=== PATIENT | female | born 1950 | race Caucasian/White ===

== ENCOUNTER 2017-07-16 10:20 | Emergency (ER) | payer OTHER, MEDICARE ==
[2017-07-16 10:26] VITALS: BP 129/82; PULSE 63; TEMP 98.6; BMI 30.2
[2017-07-16 10:35] LABS: URINE APPEARANCE Clear; URINE BILIRUBIN Negative (NEGATIVE); URINE BLOOD Trace-lysed (NEGATIVE); URINE COLOR AMBER; URINE GLUCOSE (UA) Negative (NEGATIVE); URINE KETONE Negative (NEGATIVE); URINE LEUK ESTERASE Negative (NEGATIVE); URINE NITRITE Negative (NEGATIVE); URINE PROTEIN Negative (NEGATIVE); URINE UROBILINOGEN 0.2 (0.2-1.0)
[2017-07-16 10:53] LABS: URINE RBC 0-3 /hpf (0-3)
--- NOTE | 2017-07-16 10:53 | PDOC ---
History of Present Illness - General Chief Complaint: Pain, Acute Stated Complaint: RT FLANK PAIN Time Seen by Provider: 07/16/17 10:53 - History of Present Illness Initial Comments: 07/16/17 11:36 66-year-old female with a history of COPD, hypertension, hyperlipidemia and gallstones presents to the emergency Department with sudden onset right flank pain since 5 AM this morning. Patient states the pain comes and goes and at times radiates down to the groin. 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 Denies associated nausea or vomiting. Denies urinary frequency, dysuria, hesitancy. Denies hematuria. Denies fevers or chills. Patient has never had similar pain in the past. Denies any chest pain, shortness of breath, constipation or diarrhea. Denies lower extremity edema, weakness or numbness. Has not tried any treatments and declines pain medication at this time. Past History - Past Medical History Allergies/Adverse Reactions: Allergies Allergy/AdvReac Type Severity Reaction Status Date / Time ofloxacin [From Floxin] Allergy Intermediate Verified 04/13/15 14:09 pitavastatin calcium Allergy Intermediate Rash Verified 07/16/17 10:22 [From Livalo] Ofloxacin Allergy Intermediate Uncoded 07/16/17 10:22 losartanhctz AdvReac Intermediate [place] like Uncoded 07/16/17 10:22 she was going to faint Home Medications: Ambulatory Orders [place]-3/Dha/Epa/Fish Oil [Fish Oil 1,000 mg Softgel] 1 each PO DAILY 05/19/11 Rosuvastatin [Crestor -] 10 mg PO HS 05/19/11 Cyclosporine [Restasis] 1 each OP BID 04/15/12 Cholecalciferol (Vitamin D3) [Vitamin D3] 5,000 unit PO DAILY capsule 04/11/14 Hydrochlorothiazide 12.5 mg PO DAILY tablet 07/27/15 Duloxetine HCl [Cymbalta] 30 mg PO DAILY 07/16/17 Lutein Extract/Zeaxanthin Ext [Lutein 15 mg Softgel] 1 each PO DAILY 07/16/17 Ubidecarenone [Coq-10] 100 mg PO DAILY 07/16/17 Anemia: No Asthma: No Cancer: No Cardiac Disorders: Yes (PALPITATIONS) CVA: No COPD: Yes CHF: No Dementia: No Diabetes: No GI Disorders: Yes (ACID REFLUX, GALLSTONES) Disorders: No HTN: Yes Hypercholesterolemia: Yes Liver Disease: No Seizures: No Thyroid Disease: No Other medical history: FIBROMYALGIA - Surgical History Abdominal Surgery: No Appendectomy: Yes Cardiac Surgery: No Cholecystectomy: No Lung Surgery: No Neurologic Surgery: No Orthopedic Surgery: No - Immunization History Immunization Up to Date: Yes - Suicide/Smoking/Psychosocial Hx Smoking Status: No Smoking History: Never smoked Have you smoked in the past 12 months: No Number of Cigarettes Smoked Daily: 0 Cigars Per Day: 0 Hx Alcohol Use: No Drug/Substance Use Hx: No Substance Use Type: None Hx Substance Use Treatment: No Review of Systems - Review of Systems Comments:: 07/16/17 11:38 GENERAL/CONSTITUTIONAL: No fever or chills. No weakness. HEAD, EYES, EARS, NOSE AND THROAT: No change in vision. No ear pain or discharge. No sore throat. GASTROINTESTINAL: No nausea, vomiting, diarrhea or constipation. +R flank pain GENITOURINARY: No dysuria, frequency, or change in urination. CARDIOVASCULAR: No chest pain or shortness of breath. RESPIRATORY: No cough, wheezing, or hemoptysis. MUSCULOSKELETAL: No joint or muscle swelling or pain. No neck or back pain. SKIN: No rash NEUROLOGIC: No headache, vertigo, loss of consciousness, or change in strength/ sensation. ENDOCRINE: No increased thirst. No abnormal weight change. HEMATOLOGIC/LYMPHATIC: No anemia, easy bleeding, or history of blood clots. ALLERGIC/IMMUNOLOGIC: No hives or skin allergy. *Physical Exam - Vital Signs Last Vital Signs Temp Pulse Resp BP Pulse Ox 98.6 F 63 18 129/82 98 07/16/17 10:20 07/16/17 10:20 07/16/17 10:20 07/16/17 10:20 07/16/17 10:20 - Physical Exam Comments: 07/16/17 11:39 GENERAL: Awake, alert, and fully oriented, in no acute distress HEAD: No signs of trauma EYES: PERRLA, EOMI, sclera anicteric, conjunctiva clear ENT: Auricles normal inspection, hearing grossly normal, nares patent, oropharynx clear without exudates. Moist mucosa NECK: Normal ROM, supple, no lymphadenopathy, JVD, or masses LUNGS: Breath sounds equal, clear to auscultation bilaterally. No wheezes, and no crackles HEART: Regular rate and rhythm, normal S1 and S2, no murmurs, rubs or gallops ABDOMEN: Soft, nontender, normoactive bowel sounds. No guarding, no rebound. No masses BACK: R lateral paraspinal thoracic ttp over muscles EXTREMITIES: Normal range of motion, no edema. No clubbing or cyanosis. No cords, erythema, or tenderness NEUROLOGICAL: Normal speech, cranial nerves intact, negative pronator drift, 5/ 5 strength in all 4 extremities, normal sensation to light touch in all 4 extremities, normal cerebellar exam, normal gait, normal reflexes and tone SKIN: Warm, Dry, normal turgor, no rashes or lesions noted. ED Treatment Course - LABORATORY CBC & Chemistry Diagram: 07/16/17 11:45 07/16/17 11:45 - ADDITIONAL ORDERS Additional order review: Laboratory Results 07/16/17 10:27 Urine Color Yoselyn Urine Appearance Clear Urine pH 6.0 Ur Specific [place] <= 1.005 Urine Protein Negative Urine Glucose (UA) Negative Urine Ketones Negative Urine Blood Trace-lysed H Urine Nitrite Negative Urine Bilirubin Negative Urine Urobilinogen 0.2 Ur Leukocyte Esterase Negative Medical Decision Making - Medical Decision Making 07/16/17 11:40 66-year-old female presents emergency Department with sudden onset intermittent right-sided flank pain radiating down to the right groin. Vitals unremarkable. Exam with only R lateral paraspinal thoracic ttp. Differential includes but is not limited to renal colic versus cholecystitis versus colitis versus musculoskeletal pain. Plan: -labs -UA -CTAP w/o con -declines pain meds -reassess 07/16/17 13:53 labs, CTAP unremarkable. No renal colic. Gallbaldder with stones but no perichole fluid, edema. Pt also not tender in RUQ. Continues to be tender over R lateral thoracic paraspinal muscles. Likely MSK pain. WIll trial toradol and reassess 07/16/17 14:36 Pt feels better, requests DC home. Advised to f/u with PMD within 1-2 days. I discussed the physical exam findings, ancillary test results and final diagnoses with the patient. I answered all of the patient's questions. The patient was satisfied with the care received and felt comfortable with the discharge plan and treatment plan. The patient will call their primary care physician within 24 hours to arrange follow-up and will return to the Emergency Department with any new, persistent or worsening symptoms. *DC/Admit/Observation/Transfer Diagnosis at time of Disposition: Flank pain - Discharge Dispostion Disposition: HOME Condition at time of disposition: Stable Decision to Admit order: No - Referrals Referrals: Ludwig Bolanos MD [Primary Care Provider] - - Patient Instructions Printed Discharge Instructions: DI for Flank Pain Additional Instructions: Follow up with your primary doctor in 1-2 days. Take ibuprofen as needed for pain and the muscle relaxer for breakthrough pain. The muscle relaxer (flexeril ) can make you dizzy so please do not drive or operate machinery while taking this medication. Return to the emergency department if you have any new, worsening, or concerning symptoms. - Post Discharge Activity - Attestations Physician Attestion: 07/16/17 14:39 I, Dr. Zach Farias MD, attest that this document has been prepared under my direction and personally reviewed by me in its entirety. I further attest, that it accurately reflects all work, treatment, procedures and medical decision -making performed by me.
[2017-07-16] MEDS ORDERED: SODIUM CHLORIDE 0.9% 500 ML INFUS.BAG IV ONE (11:34)
[2017-07-16 11:56] LABS: BASO % 1.1 % (0-2.0); EOS % 2.5 % (0-4.5); HEMATOCRIT 36.7 % (32.4-45.2); HEMOGLOBIN 12.7 GM/dl (10.7-15.3); LYMPH % 20.5 % (8-40); MCH 31.2 pg (25.7-33.7); MCHC 34.6 g/dl (32.0-36.0); MEAN CELL VOLUME 90.1 fl (80-96); MEAN PLT VOLUME 7.8 fl (7.5-11.1); MONO % 11.1 % (3.8-10.2); NEUT % 64.8 % (42.8-82.8); PLATELET COUNT 251 K/MM3 (134-434); RBC 4.07 M/mm3 (3.60-5.2); RDW 12.3 % (11.6-15.6); WHITE BLOOD COUNT 6.5 K/mm3 (4.0-10.8)
[2017-07-16 12:18] LABS: ALBUMIN 4.2 g/dl (3.5-5.0); ALK PHOS 40 U/L (32-92); ANION GAP 8 (8-16); BILIRUBIN,TOTAL 0.7 mg/dl (0.2-1.0); BLOOD UREA NITROGEN 23 mg/dl (7-18); CALCIUM 9.1 mg/dl (8.4-10.2); CHLORIDE 99 mmol/L (98-107); CO2 24 mmol/L (22-28); CREATININE 1.2 mg/dl (0.6-1.3); GLUCOSE,RANDOM 84 mg/dl (74-106); POTASSIUM 3.8 mmol/L (3.5-5.1); SGOT/AST 15 U/L (10-42); SGPT/ALT 10 U/L (10-40); SODIUM 131 mmol/L (136-145); TOT PROT 6.9 g/dl (6.4-8.3)
[2017-07-16 12:24] LABS: CHOLESTEROL 166 mg/dl; HDL CHOLESTEROL 50 mg/dl (29-89); LDL CHOLESTEROL (ONLY DFH) 87 mg/dl; TRIGLYCERIDES 145 mg/dl (35-160)
[2017-07-16] MEDS ORDERED: KETOROLAC TROMETHAMINE 15 MG/ML VIAL IVPUSH ONE (13:53)
[2017-07-16] MEDS ORDERED: KETOROLAC TROMETHAMINE 15 MG/ML VIAL ONE (13:54)
[2017-07-16 14:04] LABS: LIPASE 362 U/L (73-393)
== END 2017-07-16 14:45 | disposition home or self-care (01) ==
LOC: FER 10:20
PROC: 3E0333Z Introduction of Anti-inflammatory into Peripheral Vein, Percutaneous Approach (ICD-10-PCS; principal; 2017-07-16)
PROC: 3E0337Z Introduction of Electrolytic and Water Balance Substance into Peripheral Vein, Percutaneous Approach (ICD-10-PCS; 2017-07-16)
DX: R10.31 Right lower quadrant pain (principal); I10 Essential (primary) hypertension; E78.5 Hyperlipidemia, unspecified; J44.9 Chronic obstructive pulmonary disease, unspecified
CPT/HCPCS: 36415; 74176-TC; 80053; 80061; 81003; 81015; 83690; 85025; 87086; 99284-25

== ENCOUNTER 2023-11-30 13:03 | Emergency (ER) | payer OTHER, MEDICARE ==
[2023-11-30 13:12] VITALS: BP 127/76; PULSE 70; RESP 18; TEMP 98; BMI 31.5
[2023-11-30] MEDS ORDERED: ACETAMINOPHEN 325 MG TABLET (FP) ONE (14:58)
[2023-11-30] MEDS: ACETAMINOPHEN 325 MG TABLET (FP) PO ONE (15:01)
== END 2023-11-30 16:30 | disposition home or self-care (01) ==
LOC: FER 13:03
DX: R51.9 Headache, unspecified (principal); M79.671 Pain in right foot; H53.149 Visual discomfort, unspecified; W10.1XXA Fall (on)(from) sidewalk curb, initial encounter
CPT/HCPCS: 70450-TC; 73610-TC-RT-FY; 73630-TC-RT-FY; 99284-25